=== PATIENT | female | born 1980 | race Two or more races ===

== ENCOUNTER 2024-07-15 03:04 | Emergency (ER) | payer SELFPAY ==
--- NOTE | 2024-07-15 03:46 | ED Physician Documentation ---
History of Present Illness - Stated complaint Stated Complaint: - Chief complaint Chief Complaint: Neuro - History obtained from History obtained from: Patient - Additonal information Additional information: 43-year-old woman G5, P4, postop day 8 status post suction at [facility] with hormonal iud placement (also with past surgical history of x 2 and tubal ligation) presents with syncopal episode tonight and heavy vaginal bleeding. Patient went through 2 pads tonight and is still passing clots. Her reports she had a syncopal episode in front of him and was unconscious for 3 minutes. She then returned to full consciousness. Patient was not incontinent of urine or stool and had no seizure-like activity. interpreter for the deaf id [id number]. 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, Tubal ligation - Present Medications Home Medications: Ambulatory Orders Medication Instructions Recorded Confirmed No Known Home Medications 07/15/24 07/15/24 - Allergies Allergies/Adverse Reactions: Allergies Allergy/AdvReac Type Severity Reaction Status Date / Time No Known Drug Allergies Allergy Verified 07/15/24 03:33 - Social History Does the pt smoke?: No Smoking Status: Never smoker Does the pt drink ETOH?: No Does the pt have substance abuse?: No - Immunizations Immunizations are current?: No Immunizations: TDAP >10years/unknown - POLST Patient has POLST: No PD ED PE NORMAL - Vitals Vital signs reviewed: Yes - General General: Alert and oriented X 3, No acute distress, Well developed/nourished - HEENT HEENT: Atraumatic, PERRL, EOMI - Neck Neck: Supple, no meningeal sign - Cardiac Cardiac: RRR - Respiratory Respiratory: No respiratory distress, Clear bilaterally - Abdomen Abdomen: Non tender, Non distended - Derm Derm: Normal color, Warm and dry - Extremities Extremities: No deformity - Neuro Neuro: No motor deficit, No sensory deficit Results - Vitals Vitals: Vital Signs - 24 hr 07/15/24 07/15/24 03:10 04:24 Temperature 36.9 C Heart Rate 69 64 Respiratory 16 16 Rate Blood Pressure 117/83 H 125/83 H O2 Saturation 100 98 Oxygen O2 Source Room air - Labs Labs: Laboratory Tests 07/15/24 07/15/24 07/15/24 03:50 03:50 04:20 WBC 7.2 RBC 4.30 Hgb 12.5 Hct 39.2 MCV 91.2 MCH 29.1 MCHC 31.9 L RDW 13.9 Plt Count 249 MPV 10.4 Neut # (Auto) 4.1 Lymph # (Auto) 2.2 [place] # (Auto) 0.6 Eos # (Auto) 0.2 Baso # (Auto) 0.1 Absolute Nucleated RBC 0.00 Nucleated RBC % 0.0 Sodium 138 Potassium 3.8 Chloride 105 Carbon Dioxide 27 Anion Gap 6.0 BUN 18 Creatinine 0.6 Estimated GFR (MDRD) 110 Glucose 105 H Calcium 8.9 Total Bilirubin 0.6 AST 12 ALT 14 Alkaline Phosphatase 46 Total Protein 6.8 Albumin 4.0 Globulin 2.8 Albumin/Globulin Ratio 1.4 Lipase 24 Urine Color RED/BLOODY Urine Clarity SL. CLOUDY Urine pH 6.5 Ur Specific Ragan >=1.030 H Urine Protein >=300 H Urine Glucose (UA) NEGATIVE Urine Ketones NEGATIVE Urine Occult Blood LARGE H Urine Nitrite NEGATIVE Urine Bilirubin SMALL H Urine Urobilinogen 0.2 (NORMAL) Ur Leukocyte Esterase TRACE H Urine RBC TNTC H Urine WBC 0-3 Ur Squamous Epith Cells RARE Squamous Urine Bacteria Rare Urine Culture Comments INDICATED PD Medical Decision Making - ED course ED course: 43yF presents with syncopal episode and vaginal bleeding 8 days s/p surgical with vacuum assistance. Labwork normal and vitals and physical exam are benign. Plan to f/u outpatient with her global human resources director. return precautions given. Departure - Departure Disposition: 01 Home, Self Care Clinical Impression: Vaginal bleeding, Syncope Condition: Stable Instructions: ED Dizziness Syncope Fainting W Pre Print Language: Pashto Comments: You were seen in the emergency department after a fainting episode. Your lab work, vital signs and exam was all normal. Please follow-up with your global human resources director and return to the emergency department if you have any new or worsening symptoms or other concerns. La atendieron en el departamento de urgencias despus de un episodio de desmayo. Nadia anlisis de laboratorio, signos vitales y examen fueron normales. Realice un seguimiento con parisi obstetra-gineclogo y regrese al departamento de urgencias si tiene sntomas nuevos o que empeoran, u otras inquietudes. Forms: PCP List
[2024-07-15 04:16] LABS: BASOPHILS # (AUTO) 0.1 10^3/uL (0.0-0.1); BASOPHILS % (AUTO) 0.7 %; EOSINOPHILS # (AUTO) 0.2 10^3/uL (0.0-0.7); EOSINOPHILS % (AUTO) 2.8 %; HCT - HEMATOCRIT 39.2 % (37.0-47.0); HGB - HEMOGLOBIN 12.5 g/dL (12.0-16.0); LYMPHOCYTES # (AUTO) 2.2 10^3/uL (1.5-3.5); LYMPHOCYTES % (AUTO) 30.4 %; MEAN CORPUSCULAR HEMOGLOBIN 29.1 pg (27.0-31.0); MEAN CORPUSCULAR HGB CONC 31.9 g/dL (32.0-36.0); MEAN CORPUSCULAR VOLUME 91.2 fL (81.0-99.0); MEAN PLATELET VOLUME 10.4 fL (7.9-10.8); MONOCYTES # (AUTO) 0.6 10^3/uL (0.0-1.0); MONOCYTES % (AUTO) 8.5 %; NEUTROPHILS # (AUTO) 4.1 10^3/uL (1.5-6.6); NEUTROPHILS % (AUTO) 57.3 %; PLT - PLATELET COUNT 249 10^3/uL (130-450); RED CELL DISTRIBUTION WIDTH 13.9 % (12.0-15.0); WHITE BLOOD COUNT 7.2 x10^3/uL (4.8-10.8)
[2024-07-15 04:27] VITALS: O2SAT 98
[2024-07-15 04:34] LABS: BILIRUBIN,URINE SMALL (NEGATIVE); GLUCOSE, URINE (UA) NEGATIVE (NEGATIVE); KETONES,URINE (UA) NEGATIVE (NEGATIVE); LEUKOCYTE ESTERASE, URINE TRACE (NEGATIVE); NITRITE,URINE NEGATIVE (NEGATIVE); OCCULT BLOOD,URINE LARGE (NEGATIVE); PH,URINE 6.5 PH (5.0-7.5); PROTEIN,URINE >=300 mg/dL (NEGATIVE); UROBILINOGEN,URINE 0.2 (NORMAL) E.U./dL (NORMAL)
[2024-07-15 04:35] LABS: CLARITY,URINE SL. CLOUDY (CLEAR); RBC,URINE TNTC /HPF (0-5); WBC,URINE 0-3 /HPF (0-5)
[2024-07-15 04:36] LABS: BACTERIA,URINE Rare /HPF (None Seen); SQUAMOUS EPITHELIAL CELL,UR RARE Squamous (<= Few)
[2024-07-15 04:38] LABS: ALBUMIN/GLOBULIN RATIO 1.4 (1.0-2.2); BILIRUBIN,TOTAL 0.6 mg/dL (0.2-1.0); CALCIUM 8.9 mg/dL (8.5-10.3); CREATININE 0.6 mg/dL (0.6-1.3); POTASSIUM 3.8 mmol/L (3.5-4.5); TOTAL PROTEIN 6.8 g/dL (6.4-8.9)
[2024-07-15 05:20] VITALS: BP 122/62
== END 2024-07-15 05:12 | disposition home or self-care (01) ==
LOC: ED 03:04
DX: O03.6 Delayed or excessive hemorrhage following complete or unspecified spontaneous abortion (principal)
CPT/HCPCS: 36415; 80053; 81001; 83690; 85025; 86850; 86900; 86901; 87086; 99283; 99284